=== PATIENT | female | born 1985 | race African-American/Black ===

== ENCOUNTER 2024-01-14 12:07 | Emergency (ER) | payer MEDICAID | END 2024-01-14 13:24 | disposition left against medical advice (07) | LOC: ER 13:20 | DX: T22.00XA Burn of unspecified degree of shoulder and upper limb, except wrist and hand, unspecified site, initial encounter (principal); Z53.21 Procedure and treatment not carried out due to patient leaving prior to being seen by health care provider; X08.8XXA Exposure to other specified smoke, fire and flames, initial encounter; Y93.89 Activity, other specified; Y92.89 Other specified places as the place of occurrence of the external cause; Y99.8 Other external cause status ==